=== PATIENT | female | born 1995 | race Caucasian/White ===

== ENCOUNTER 2020-04-22 10:13 | Inpatient (IN) | payer OTHER ==
[~2020-04-22] VITALS: Ht 160 cm; Wt 69.9 kg
--- NOTE | 2020-04-22 12:30 | NUR ---
SWABBED BOTH NARES FOR RAPID COVID TEST
--- NOTE | 2020-04-22 12:37 | NUR ---
04/22/20 Rizwana Miner PATIENT IS AWAKE AND ALERT. SHE IS DENYING PAIN. REPORTS "PRESSURE." PATIENT DENIES NAUSEA.
--- NOTE | 2020-04-22 20:53 | NUR ---
PROVIDED SANDWICH BOX FOR PT
--- NOTE | 2020-04-22 23:05 | NUR ---
IN TO ASST PT TO MOVE CATH TUBING FROM UNDER HER LEG, RN NOW IN THE RM
--- NOTE | 2020-04-23 10:18 | PR ---
[facility] [address] [facility] [place], [place] [address] Signed PP Progress Notes Datetime Report Generated by CPN: 04/23/2020 10:18 SUBJECTIVE: [id number] Pain: Within Normal Limits Nausea/Vomiting: Denies Vital Signs: [id number] Vital Signs: Reviewed; Within Normal Limits Cardiovascular: Normal Respiratory: Normal Abdomen/Uterus: Abnormal Lochia: Normal Vulva/Perineum: Not Done Breasts: Not Done CVA Tenderness: Not Done Extremities: Normal Incision: Normal Progress: Abnormal Exam Comments: Abdomen with active BS. Fundus firm, NT @ U-1. H/H 10.9/32.1, WBC 17, plat 186k IMPRESSION/PLAN/PROCEDURES: [id number] Impression: Normal Progression; Difficulties Plan: Discharge Procedures: None Progress Notes: She is doing well and would like to be discharged to go to the baby. The baby is doing well at [facility]. Signing Physician: Anju Mckeon MD Copies: ~ *Electronically Signed* 04/23/20 1018 ANJU MCKEON MD PATIENT NAME: YAMILA RUSSELL PROGRESS NOTE DATE OF : [birth year] PHYSICIAN: ANJU MCKEON MD RPT #: [id number] REPORT IS CONFIDENTIAL AND NOT TO BE RELEASED WITHOUT AUTHORIZATION
--- NOTE | 2020-04-23 11:35 | OR ---
[facility] [address] [place] [address] [place], [place] [address] Signed DATE OF OPERATION: 04/22/2020 SURGEON: Anjel Schwartz MD Patient of Dr. Schwartz. PREOPERATIVE DIAGNOSES: labor, distress. POSTOPERATIVE DIAGNOSES: labor, distress. PROCEDURE: Emergency primary low transverse segment section delivery live female infant. BARGE LOADER: Dr. Luciano. ANESTHESIA: Spinal. ESTIMATED BLOOD LOSS: 500 mL. COMPLICATIONS: None. DRAINS: Hearn to bladder. FINDINGS: Live female . Weight 3 pounds 14 ounces. Apgars 7 and 7. Normal uterus. Normal tubes and ovaries bilateral. DESCRIPTION: The patient was brought to the operating room, placed in supine position. After adequate spinal anesthesia was obtained, the patient was prepped and draped in usual sterile fashion. A Pfannenstiel skin incision was made with a scalpel and extended through the subcutaneous tissue with scalpel and finger dissection. The fascia was nicked with scalpel and extended in transverse fashion using curved scissors. The Electronically Signed By: ANJEL SCHWARTZ MD 04/23/20 1135 PATIENT NAME: YAMILA RUSSELL OPERATIVE REPORT DATE OF : [birth year] REPORT #: [id number] PHYSICIAN: ANJEL SCHWARTZ MD PCP: MERLIN MCKEON MD REPORT IS CONFIDENTIAL AND NOT TO BE RELEASED WITHOUT AUTHORIZATION [facility] [address] [place], [place] [address] Signed underlying abdominal musculature was bluntly and sharply from the fascia above and below the incision. The abdominal musculature was bluntly and sharply along the midline. The peritoneum was opened with finger dissection and the Mark self-retaining retractor inserted into the incision and tightened in place. The lower uterine segment was carefully nicked with scalpel and extended in transverse fashion using finger dissection. The infant was noted to be in vertex XI presentation. Infant head easily delivered from the incision. The rest of the was easily delivered from the incision. A small amount of clear fluid was noted. The cord was doubly clamped and cut. The infant passed off table in stable condition to the awaiting beef pluck trimmer. Cord gases were obtained and then the placenta manually removed. Uterine cavity was explored with a lap pad to remove any retained membranes. An angle stitch of 0 Monocryl was placed at one end of the incision and a running locking stitch of 0 Monocryl starting at the other end used to close the incision. A 2nd running stitch of 0 Monocryl was used to imbricate the 1st layer. A small amount of bleeding at the left angle, this was controlled with two [id number] stitches of 0 Monocryl. When good hemostasis was obtained, the entire pelvis was irrigated, suctioned, examined, and noted to have good hemostasis. The Mark retractor was then removed and sheet of ACell placed over the lower uterine segment to help with healing. The anterior wall peritoneum was closed using running stitch of 2-0 Vicryl suture. The abdominal musculature was reapproximated using interrupted stitch of 0 Vicryl suture. The abdominal wall incision was irrigated, suctioned, examined, and any bleeding spots were cauterized with the Bovie. The fascia was closed using two running stitches of 0 Vicryl suture meeting in the midline. The subcutaneous tissue was irrigated, suctioned, examined, and any bleeding spots were cauterized with the Bovie and then closed using interrupted stitches of 3-0 Vicryl suture. Skin was reapproximated using skin clips. The patient tolerated the procedure well and went to recovery room in good condition. The placenta was sent to Pathology for examination. The sponge, needle, and instrument count was correct at the end of the procedure. Anjel Schwartz MD MJB/MODL /[id number] cc: Merlin Mckeon MD Electronically Signed By: ANJEL SCHWARTZ MD 04/23/20 1135 PATIENT NAME: YAMILA RUSSELL OPERATIVE REPORT DATE OF : [birth year] REPORT #: [id number] PHYSICIAN: ANJEL SCHWARTZ MD PCP: MERLIN MCKEON MD REPORT IS CONFIDENTIAL AND NOT TO BE RELEASED WITHOUT AUTHORIZATION [facility] [address] [place] [id number] Signed Copies: MERLIN MCKEON MD ~ Electronically Signed By: ANJEL SCHWARTZ MD 04/23/20 1135 PATIENT NAME: YAMILA RUSSELL OPERATIVE REPORT DATE OF : [birth year] REPORT #: [id number] PHYSICIAN: ANJEL SCHWARTZ MD PCP: MERLIN MCKEON MD REPORT IS CONFIDENTIAL AND NOT TO BE RELEASED WITHOUT AUTHORIZATION
== END 2020-04-23 13:52 | disposition home or self-care (01) | DRG 788 ==
LOC: FBCO 10:13 → FBC 11:06 → FBCO 11:06 → FBC 12:18 → MS 12:18 → FBC 13:47 → FBCO 06-18 08:32
PROVIDERS: ADMIT General Practice; ATTEND General Practice
PROC: 10D00Z1 Extraction of Products of Conception, Low, Open Approach (ICD-10-PCS; principal; 2020-04-22 11:25)
DX: O60.23X0 Term delivery with preterm labor, third trimester, not applicable or unspecified (principal); O77.9 Labor and delivery complicated by fetal stress, unspecified; Z37.0 Single live birth; O42.913 Preterm premature rupture of membranes, unspecified as to length of time between rupture and onset of labor, third trimester; Z3A.31 31 weeks gestation of pregnancy; Z20.822 Contact with and (suspected) exposure to COVID-19; O99.334 Smoking (tobacco) complicating childbirth; F17.210 Nicotine dependence, cigarettes, uncomplicated; O28.2 Abnormal cytological finding on antenatal screening of mother
CPT/HCPCS: 01961; 36415; 82803; 85027; A9270; C9803; J0690; J1885; J2001; J2270; J2274; J2300; J2405; J2590; J3105; J7121; U0003